=== PATIENT | female | born 1985 | race Caucasian/White ===

== ENCOUNTER → 2019-03-02 | Outpatient (CLI) | payer BC ==
[2019-03-02 10:15] VITALS: BP 141/85; PULSE 70; TEMP 98.5; BMI 43.9
--- NOTE | 2019-03-02 11:14 | P.HPBAR ---
Bariatric H&P - History & Physicial H&P Date: 03/02/19 History & Physicial: Visit/CC: initial clinic visit Patient initial contact: Initial weight: Initial weight in pounds: Height: 5 ft 8.25 in Initial BMI: Last weight: Current weight: 131.995 kg Current weight in pounds: 291.00 Current BMI: 43.9 [place] body weight (based on NIH guidelines): 64.07 kg Excess body weight loss: The patient is a 33 year-old F who presents for Bariatric Assessment. HPI: She reports looking into weight loss for years. Highest weight is present at 291 pounds. For weight loss, she has tried Xicenda, Adipex, and medications. Most weight loss of 60 pounds. with Adipex and going to the gym. She still has gallbladder and cannot tolerate fatty foods or fast foods. No family history of esophageal or stomach cancer. She reports diarrhea with fast foods. She reports intolerance to milk. She has started medical supervised weight loss. She is looking to gastrectomy. She reports lower back pain, hip, knee pain, ankle pain. She reports migraines with vomiting. ASSESSMENT: 1. Morbid obesity 2. Gallbladde disorder PLAN: 1. Labs 2. MBSC calculator 3. US gallbladder and HIDA scan 4. Open to gastrectomy options. 5. Sleep study Past Medical History Past Medical History: No Reported History, GERD/Reflux History of Any Multi-Drug Resistant Organisms: None Reported Past Surgical History: No Surgical Hx Reported Additional Past Surgical History / Comment(s): Copper IUD implanted 2012, vaginal childbirth x 1 in December 2012. Past Anesthesia/Blood Transfusion Reactions: No Reported Reaction Past Psychological History: Anxiety, Depression Smoking Status: Never smoker Past Alcohol Use History: None Reported Past Drug Use History: None Reported Surgical - Exam Vital Signs Temp Pulse BP 98.5 F 70 141/85 03/02/19 10:11 03/02/19 10:11 03/02/19 10:11 Bariatric Checklist Checklist: Plan: Checklist: EGD: 1. Hiatal hernia: 2. H. Pylori: HgbA1c: Vitamin D: Smoking: Never smoker Primary care physician referral: dr lopez Psychiatry clearance: Cardiology clearance: Sleep study: Diet journal: VTE risk score: VTE risk level: Rehab needs at discharge:
[2019-03-02 12:25] LABS: HCT 38.4 % (34.0-46.0); HGB 12.4 gm/dL (11.4-16.0); MCH 29.4 pg (25.0-35.0); MCHC 32.3 g/dL (31.0-37.0); Mean Platelet Volume 6.8; Platelet Count 274 k/uL (150-450); RBC 4.21 m/uL (3.80-5.40); RDW 12.8 % (11.5-15.5); WBC 6.3 k/uL (3.8-10.6)
[2019-03-02 12:39] LABS: INR 0.9 (<1.2); Partial Thromboplastin Time 23.1 sec (22.0-30.0); Prothrombin Time 9.7 sec (9.0-12.0)
[2019-03-02 19:08] LABS: Parathyroid Hormone Intact 24.4 pg/mL (14.0-72.0)
[2019-03-02 19:09] LABS: African American GFR (CKD) 96.7 (60.0-200.0); Albumin 4.2 g/dL (3.80-4.90); Albumin/Globulin Ratio 2.1 (1.60-3.17); BUN/Creat Ratio 14.44 Ratio (12.00-20.00); Calcium 9.1 mg/dL (8.7-10.3); Iron Saturation 16.62 (12.00-45.00); LDL Cholesterol,Calculated 88.2 mg/dL (0.0-131.0); Magnesium 1.8 mg/dL (1.5-2.4); Phosphorus 3.1 mg/dL (2.4-5.1); Potassium 4.1 mmol/L (3.5-5.5); Total Bilirubin 0.3 mg/dL (0.3-1.2); Total Protein 6.2 g/dL (6.2-8.2); VLDL Calculation 26.8 mg/dL (5.00-40.00)
[2019-03-02 19:42] LABS: Folate, Serum 16.2 ng/mL
[2019-03-02 22:17] LABS: Hemoglobin A1C 5.3 % (4.0-6.0)
[2019-03-03 13:45] LABS: Vit B1(Thiamine) 46 ug/L (38-122)
[2019-03-03 15:19] LABS: Zinc, Serum 60 ug/dL (60-130)
[2019-03-04 15:14] LABS: Vitamin A 44 ug/dL (38-106)
[2019-03-07 16:50] LABS: Selenium 118 mcg/L (63-160)
== END ==
LOC: BARWHC3 09:45
PROVIDERS: ATTEND Surgery Plastic and Reconstructive Surgery
DX: E66.01 Morbid (severe) obesity due to excess calories (principal); E21.1 Secondary hyperparathyroidism, not elsewhere classified; E89.1 Postprocedural hypoinsulinemia; D50.9 Iron deficiency anemia, unspecified; E44.0 Moderate protein-calorie malnutrition; E55.9 Vitamin D deficiency, unspecified; K74.1 Hepatic sclerosis; N19 Unspecified kidney failure; K50.90 Crohn's disease, unspecified, without complications; Z68.41 Body mass index [BMI] 40.0-44.9, adult
CPT/HCPCS: 80053; 80061; 82306; 82525; 82607; 82728; 82746; 83036; 83540; 83550; 83735; 83970; 84100; 84134; 84255; 84425; 84443; 84590; 84630; 85027; 85610; 85730; 93005; 99211

== ENCOUNTER → 2019-03-22 | Outpatient (CLI) | payer BC ==
--- NOTE | 2019-03-22 08:12 | US ---
EXAMINATION TYPE: US gallbladder DATE OF EXAM: 03/22/2019 COMPARISON: NONE CLINICAL HISTORY: R10.11 Right Upper Quad pain. Intermittent RUQ pain and N/V/D x multiple years, get s worse after eating. EXAM MEASUREMENTS: Liver Length: 14.5 cm Gallbladder Wall: 0.1 cm CBD: 0.3 cm Right Kidney: 10.7 x 5.3 x 4.8 cm Pancreas: visualized portions wnl, limited by overlying midline bowel gas Liver: wnl Gallbladder: wnl Evidence for sonographic Ortiz's sign: no CBD: visualized portions wnl, limited by overlying bowel gas Right Kidney: wnl IMPRESSION: No sonographic evidence of cholelithiasis nor acute cholecystitis.
== END | disposition home or self-care (01) ==
LOC: RADUSWWP 07:25
PROVIDERS: ATTEND Surgery Plastic and Reconstructive Surgery
DX: R10.11 Right upper quadrant pain (principal); R94.5 Abnormal results of liver function studies; Z88.8 Allergy status to other drugs, medicaments and biological substances; Z91.048 Other nonmedicinal substance allergy status
CPT/HCPCS: 76705

== ENCOUNTER 2019-04-03 07:57 | Day surgery (SDC) | payer BC ==
[2019-03-30 12:15] VITALS: BMI 44.1
--- NOTE | 2019-04-02 21:31 | P.GSHP ---
History of Present Illness H&P Date: 04/03/19 CHIEF COMPLAINT: GERD HISTORY OF PRESENT ILLNESS: The patient is a 34-year-old female who presents reports gastroesophageal reflux disease. Upper endoscopy was offered for further evaluation and management. PAST MEDICAL HISTORY: Please see list. PAST SURGICAL HISTORY: Please see list. MEDICATIONS: Please see list. ALLERGIES: Please see list. SOCIAL HISTORY: No illicit drug use FAMILY HISTORY: No reports of Crohn disease or ulcerative colitis. REVIEW OF ORGAN SYSTEMS: CONSTITUTIONAL: No reports of fevers or chills. GI: Denies any blood in stools or constipation. PHYSICAL EXAM: VITAL SIGNS: Stable GENERAL: Well-developed and pleasant in no acute distress. HEENT: No scleral icterus. Extraocular movements grossly intact. Moist buccal mucosa. NECK: Supple without lymphadenopathy. CHEST: Unlabored respirations. Equal bilateral excursions. CARDIOVASCULAR: Regular rate and rhythm. Distal 2+ pulses. ABDOMEN: Soft, nondistended. MUSCULOSKELETAL: No clubbing, cyanosis, or edema. ASSESSMENT: 1. Gastroesophageal reflux disease PLAN: 1. Recommend proceeding with an upper endoscopy Past Medical History Past Medical History: GERD/Reflux, Osteoarthritis (OA) Additional Past Medical History / Comment(s): bilateral knee & ankle pain, MIGRAINE HEADACHE History of Any Multi-Drug Resistant Organisms: None Reported Past Surgical History: No Surgical Hx Reported Additional Past Surgical History / Comment(s): EPIDURAL FOR CHILDBIRTH Past Anesthesia/Blood Transfusion Reactions: No Reported Reaction Smoking Status: Never smoker - Past Family History Father Family Medical History: Cancer Medications and Allergies Home Medications Medication Instructions Recorded Confirmed Type Liraglutide [Saxenda] 1 injection SQ DAILY 02/28/19 03/30/19 History Vortioxetine Hydrobromide 20 mg PO DAILY 03/02/19 03/30/19 History [Trintellix] buPROPion HCL [Wellbutrin XL] 150 mg PO DAILY 03/02/19 03/30/19 History Allergies Allergy/AdvReac Type Severity Reaction Status Date / Time escitalopram [From Lexapro] Allergy Anaphylaxis Verified 03/30/19 11:56 nickel Allergy Rash/Hives Verified 03/30/19 11:56
[~2019-04-03 07:57] MED LIST: LACTATED RINGERS 1,000 ML IV SCH; LIDOCAINE 1% 20 ML VIAL (10MG/ML) FOR IV START INTRADERMA PRN
[2019-04-03 08:33] VITALS: RESP 18; TEMP 98.2
[2019-04-03] MEDS ORDERED: LIDOCAINE 1% INJ 10MG/ML (20 ML MDV) ONE (09:57)
[2019-04-03] MEDS ORDERED: PROPOFOL 10 MG/ML 20 ML VIAL IV ONE (09:57)
--- NOTE | 2019-04-03 10:13 | P.PCN ---
Date of Procedure: 04/03/19 Description of Procedure: PREOPERATIVE DIAGNOSIS: Gastroesophageal reflux disease. Morbid obesity. POSTOPERATIVE DIAGNOSIS: Morbid obesity. Gastritis. Duodenitis Gastric polyp, benign cardia Gastroesophageal reflux disease. OPERATION: Esophagogastroduodenoscopy with biopsies along antrum and duodenum SURGEON: Nisa Shen MD ANESTHESIA: MAC. INDICATIONS: The patient is a 34-year-old female who presents with a history of reflux disease. Benefits and risks of the procedure were described. Informed consent was obtained. DESCRIPTION: The patient was brought into the endoscopy suite and laid in the left lateral decubitus position. An Olympus gastroscope was passed along the posterior oropharynx down to the distal esophagus where the squamocolumnar junction was encountered at 40 cm from the incisors. The stomach was entered and no bile reflux was found. Additional findings are listed below. Biopsies with cold forceps were obtained of the antrum. The first through third portion of the duodenum was examined and had active duodenitis. Retroflexion of the scope confirmed Hill grade 2 lower esophageal valve. The squamocolumnar junction demonstrated LA grade A erosive esophagitis. The stomach was desufflated. The patient tolerated the procedure well. FINDINGS: Squamocolumnar junction 37 cm from the incisors. Diaphragmatic hiatus at 37 cm. Benign gastric polyp 2 mm gastric cardia Hill grade 2 lower esophageal valve. LA grade A erosive esophagitis. Active duodenitis. Moderate chronic gastritis RECOMMENDATIONS: Upper endoscopy as needed. Start on omeprazole 40 mg daily Plan - Discharge Summary Discharge Rx Participant: Yes New Discharge Prescriptions: New Omeprazole 40 mg PO DAILY #30 capsule. No Action Liraglutide [Saxenda] 1 injection SQ DAILY buPROPion HCL [Wellbutrin XL] 150 mg PO DAILY Vortioxetine Hydrobromide [Trintellix] 20 mg PO DAILY Discharge Medication List Liraglutide [Saxenda] 1 injection SQ DAILY 02/28/19 [History] Vortioxetine Hydrobromide [Trintellix] 20 mg PO DAILY 03/02/19 [History] buPROPion HCL [Wellbutrin XL] 150 mg PO DAILY 03/02/19 [History] Omeprazole 40 mg PO DAILY #30 capsule. 04/03/19 [Rx] Follow up Appointment(s)/Referral(s): Nisa Shen MD [STAFF PHYSICIAN] - 04/26/19 Patient Instructions/Handouts: Gastritis (DC), Gastroesophageal Reflux Disease (DC), Gastric Polyps (DC), Duodenitis (ED) Discharge Disposition: HOME SELF-CARE
[2019-04-03 10:49] VITALS: BP 132/76; PULSE 79
== END 2019-04-03 11:03 | disposition home or self-care (01) ==
LOC: ORWHC2ENDO 07:57
PROVIDERS: ATTEND Surgery Plastic and Reconstructive Surgery
DX: K21.0 Gastro-esophageal reflux disease with esophagitis (principal); K29.50 Unspecified chronic gastritis without bleeding; K29.80 Duodenitis without bleeding; K31.7 Polyp of stomach and duodenum; E66.01 Morbid (severe) obesity due to excess calories; Z68.41 Body mass index [BMI] 40.0-44.9, adult; M19.90 Unspecified osteoarthritis, unspecified site; G43.909 Migraine, unspecified, not intractable, without status migrainosus; M25.562 Pain in left knee; M25.561 Pain in right knee; M25.572 Pain in left ankle and joints of left foot; M25.571 Pain in right ankle and joints of right foot; Z79.84 Long term (current) use of oral hypoglycemic drugs; Z79.899 Other long term (current) drug therapy; Z88.8 Allergy status to other drugs, medicaments and biological substances; Z91.048 Other nonmedicinal substance allergy status; Z80.9 Family history of malignant neoplasm, unspecified
CPT/HCPCS: 43239; 88305; 81025; J2001; J2704

== ENCOUNTER → 2019-05-17 | Outpatient (CLI) | payer BC ==
[2019-05-17 14:47] VITALS: BP 126/84; PULSE 85; TEMP 98.6; BMI 43.8
--- NOTE | 2019-05-17 15:34 | P.PN ---
Subjective Progress Note Date: 05/17/19 HPI: She is still in medical supervised weight loss since September ABDOMEN: Unremarkable LABS: reviewed EKG abnormal ASSESSMENT: 1. Morbid obesity PLAN: 1. All options and MBSC reveiwed 2. Follow up after cardiology and dietary Objective - Vital Signs Vital signs: Vital Signs Temp 98.6 F 05/17/19 14:07 Pulse 85 05/17/19 14:07 Resp BP 126/84 05/17/19 14:07 Pulse Ox Intake & Output 05/16/19 05/17/19 05/17/19 18:59 06:59 18:59 Weight 131.814 kg
== END ==
LOC: BARWHC3 13:47
PROVIDERS: ATTEND Surgery Plastic and Reconstructive Surgery
DX: E66.01 Morbid (severe) obesity due to excess calories (principal); R94.31 Abnormal electrocardiogram [ECG] [EKG]; Z68.41 Body mass index [BMI] 40.0-44.9, adult
CPT/HCPCS: 99211

== ENCOUNTER → 2019-06-05 | Outpatient (CLI) | payer BC ==
[2019-06-05 10:45] VITALS: BMI 43.7
== END | disposition home or self-care (01) ==
LOC: BARWHC3 08:31
PROVIDERS: ATTEND Surgery Plastic and Reconstructive Surgery
DX: E66.01 Morbid (severe) obesity due to excess calories (principal); Z68.41 Body mass index [BMI] 40.0-44.9, adult
CPT/HCPCS: 97804

== ENCOUNTER → 2019-09-13 | Outpatient (CLI) | payer BC ==
[2019-09-13 16:03] VITALS: BP 133/81; PULSE 97; RESP 16; TEMP 98; BMI 42.4
--- NOTE | 2019-09-13 16:38 | P.PN ---
Subjective Progress Note Date: 09/13/19 DATE OF SERVICE: 09/13/2019 CHIEF COMPLAINT: Morbid obesity HISTORY OF PRESENT ILLNESS: Sania Osullivan is a 34-year-old female who comes with lifelong morbid obesity. She is looking into the gastric bypass. She reports right upper quadrant abdominal pain including with eating fatty goods. At height of 5 feet 8.25 inches, her ideal body weight is 163 pounds. Her highest weight is present at 291 pounds, BMI 44.0. She comes in 280 pounds from 290 pounds, 3 months ago. She has lost 10 pound in 3 months. Her body mass index is 42.4. She is 117 pounds overweight. PAST MEDICAL HISTORY: 1. Morbid obesity due to excess calories 2. Body mass index of 44.0, initial 3. Osteoarthritis of the knees. 4. Osteoarthritis of the lower back. 5. Osteoarthritis of the ankle 6. Anxiety 7. Depressive disorder 8. Gastroesophageal reflux disease PAST SURGICAL HISTORY: 1. No abdominal surgeries HOME MEDICATIONS: Home Medications Medication Instructions Recorded Confirmed Liraglutide [Saxenda] 1 injection SQ DAILY 02/28/19 04/03/19 Vortioxetine Hydrobromide 20 mg PO DAILY 03/02/19 04/03/19 [Trintellix] buPROPion HCL [Wellbutrin XL] 150 mg PO DAILY 03/02/19 04/03/19 Previous Rx's Medication Instructions Recorded Omeprazole 40 mg PO DAILY #30 capsule. 04/03/19 ALLERGIES: Allergies Allergy/AdvReac Type Severity Reaction Status Date / Time escitalopram [From Lexapro] Allergy Anaphylaxis Verified 04/03/19 08:16 nickel Allergy Rash/Hives Verified 04/03/19 08:16 SOCIAL HISTORY: No past tobacco use. FAMILY HISTORY: No family history of ulcerative colitis disease or Crohn's disease. Family history of morbid obesity. No lupus in the family. No reports of stomach or esophageal cancer. REVIEW OF ORGAN SYSTEMS: CONSTITUTIONAL: At height of 5 feet 8.25 inches, her ideal body weight is 163 pounds. Highest weight 291 pounds, BMI 44.0. Her body mass index is 44.0. She was 128 pounds overweight. HEENT: Denies any active troubles with vision or hearing. ENDOCRINE: No diabetes. No hypothyroidism. CARDIOVASCULAR: No past reports of palpitations or heart attacks or chest pain. RESPIRATORY: No daytime somnolence. No asthma. GASTROINTESTINAL: Denies any bright red blood per rectum. No diarrhea. No constipation. MUSCULOSKELETAL: Has lower back pain and joint pain. Has osteoarthritis of the knees. NEURO: No headaches. No seizure disorders. PSYCH: Has depression. No suicidal ideation. RHEUMATOLOGIC: No lupus. No rheumatoid arthritis. HEMATOLOGIC: Denies any abnormal bleeding or bruising. No personal history of DVTs. SKIN: No rash. No skin cancer. PHYSICAL EXAM: VITAL SIGNS: Height 5 foot 8.25 inches, weight 280 pounds. BMI 42.4 Vital Signs Temp 98 F 09/13/19 16:00 Pulse 97 09/13/19 16:00 Resp 16 09/13/19 16:00 BP 133/81 09/13/19 16:00 Pulse Ox GENERAL: Well-developed in no acute distress. HEENT: No scleral icterus. Extraocular movements grossly intact. Hears conversational speech. No nasal drainage. NECK: Supple without lymphadenopathy. CHEST: Nonlabored respirations with equal bilateral excursions. CARDIOVASCULAR: Regular rate and regular rhythm. Distal 2+ pulses. ABDOMEN: Obese, soft, nontender, nondistended. MUSCULOSKELETAL: No clubbing, cyanosis. NEURO: No focal or lateralizing signs. Cranial nerves 2 through 12 grossly within normal limits. PSYCH: Appropriate affect. Alert and oriented to person, place and time. SKIN: Good skin turgor. Well perfused. ASSESSMENT: 1. Morbid obesity due to excess calories 2. Body mass index of 44.0 to 42.4 3. Osteoarthritis of the knees. 4. Osteoarthritis of the lower back. 5. Osteoarthritis of the ankle 6. Anxiety 7. Depressive disorder 8. Gastroesophageal reflux disease 9. Gallbladder disorder PLAN: 1. Bariatric options between a sleeve, band and a Josefina-en-Y gastric bypass were reviewed in detail. The patient elected for a gastric bypass. Robotic assisted approach described. 2. The [place] [facility] Data was also reviewed with benefits and risks as described. 3. An 8 page second-generation bariatric consent form was reviewed in detail including potential of bleeding, infection, leaks, adequate weight loss, nutritional deficiencies which the patient demonstrated understanding of the risks. 4. A 2 week high-protein low caloric 800 kcal diet described to address hepat omegaly. 5. Preoperative labs including complete metabolic panel and CBC with type and screen recommended. 6. DVT prophylaxis per [place] [facility]. 7. Antibiotic prophylaxis. 8. Inpatient hospitalization anticipated for more than 2 nights. 9. All questions and concerns were addressed with the patient. 10. She has right upper quadrant pain. Recommend robotic cholecystectomy described. 11. She is elevated risk for bismark-operative complications with multiple procedures. Objective - Vital Signs Vital signs: Vital Signs Temp 98 F 09/13/19 16:00 Pulse 97 09/13/19 16:00 Resp 16 09/13/19 16:00 BP 133/81 09/13/19 16:00 Pulse Ox Intake & Output 09/12/19 09/13/19 09/13/19 18:59 06:59 18:59 Weight 127.459 kg - Labs CBC & Chem 7: 09/13/19 17:09 09/13/19 17:18
[2019-09-13 17:51] LABS: HGB 13.8 gm/dL (11.4-16.0); MCV 90.5 fL (80.0-100.0); Platelet Count 257 k/uL (150-450); RBC 4.75 m/uL (3.80-5.40); RDW 13.4 % (11.5-15.5)
[2019-09-14 02:07] LABS: African American GFR (CKD) 130.1 (60.0-200.0); Albumin 4.4 g/dL (3.80-4.90); Anion Gap 13.6 mmol/L (4.00-12.00); BUN/Creat Ratio 18.57 Ratio (12.00-20.00); Calcium 9.3 mg/dL (8.7-10.3); Carbon Dioxide 22.4 mmol/L (21.6-31.8); Globulin 2.2 g/dL (1.6-3.3); Non-African American GFR(CKD) 112.3 (60.0-200.0); Potassium 4.2 mmol/L (3.5-5.5); Total Bilirubin 0.4 mg/dL (0.2-1.2); Total Protein 6.6 g/dL (6.2-8.2)
== END | disposition home or self-care (01) ==
LOC: BARWHC3 15:21
PROVIDERS: ATTEND Surgery Plastic and Reconstructive Surgery
DX: E66.01 Morbid (severe) obesity due to excess calories (principal); M17.0 Bilateral primary osteoarthritis of knee; M19.079 Primary osteoarthritis, unspecified ankle and foot; F41.8 Other specified anxiety disorders; K21.9 Gastro-esophageal reflux disease without esophagitis; K82.9 Disease of gallbladder, unspecified; Z68.41 Body mass index [BMI] 40.0-44.9, adult; Z83.49 Family history of other endocrine, nutritional and metabolic diseases; Z79.899 Other long term (current) drug therapy; Z88.8 Allergy status to other drugs, medicaments and biological substances
CPT/HCPCS: 80053; 85027; 99211

== ENCOUNTER 2019-09-18 06:20 | Inpatient (IN) | payer BC ==
--- NOTE | 2019-09-17 18:52 | P.GSHP ---
History of Present Illness H&P Date: 09/18/19 CHIEF COMPLAINT: Morbid obesity HISTORY OF PRESENT ILLNESS: Sania Osullivan is a 34-year-old female who comes with lifelong morbid obesity. Her highest weight is 291 pounds. She is looking to gastrectomy procedures. She reports lower back pain, hip, knee pain, ankle pain. She reports worsening right upper quadrant abdominal pain worsened with fatty foods. She presents for gastric bypass and cholecystectomy. At height of 5 feet 8.25 inches, her ideal body weight is 163 pounds. She was 291 pounds. Her body mass index was 44.0. She is 127 pounds overweight. PAST MEDICAL HISTORY: 1. Morbid obesity due to excess calories 2. Body mass index of 44.0, initial 3. Osteoarthritis of the knees. 4. Osteoarthritis of the lower back. 5. Osteoarthritis of the ankle 6. Anxiety 7. Depressive disorder 8. Gastroesophageal reflux disease PAST SURGICAL HISTORY: 1. No abdominal surgeries HOME MEDICATIONS: Home Medications Medication Instructions Recorded Confirmed Liraglutide [Saxenda] 1 injection SQ DAILY 02/28/19 04/03/19 Vortioxetine Hydrobromide 20 mg PO DAILY 03/02/19 04/03/19 [Trintellix] buPROPion HCL [Wellbutrin XL] 150 mg PO DAILY 03/02/19 04/03/19 Previous Rx's Medication Instructions Recorded Omeprazole 40 mg PO DAILY #30 capsule. 04/03/19 ALLERGIES: Allergies Allergy/AdvReac Type Severity Reaction Status Date / Time escitalopram [From Lexapro] Allergy Anaphylaxis Verified 04/03/19 08:16 nickel Allergy Rash/Hives Verified 04/03/19 08:16 SOCIAL HISTORY: No past tobacco use. FAMILY HISTORY: No family history of ulcerative colitis disease or Crohn's disease. Family history of morbid obesity. No lupus in the family. No reports of stomach or esophageal cancer. REVIEW OF ORGAN SYSTEMS: CONSTITUTIONAL: At height of 5 feet 8.25 inches, her ideal body weight is 163 pounds. She comes in 291 pounds. Her body mass index is 44.0. She is 128 pounds overweight. HEENT: Denies any active troubles with vision or hearing. ENDOCRINE: No diabetes. No hypothyroidism. CARDIOVASCULAR: No past reports of palpitations or heart attacks or chest pain. RESPIRATORY: No daytime somnolence. No asthma. GASTROINTESTINAL: Denies any bright red blood per rectum. No diarrhea. No constipation. Has gallbladder disorder MUSCULOSKELETAL: Has lower back pain and joint pain. Has osteoarthritis of the knees. NEURO: No headaches. No seizure disorders. PSYCH: Has depression. No suicidal ideation. RHEUMATOLOGIC: No lupus. No rheumatoid arthritis. HEMATOLOGIC: Denies any abnormal bleeding or bruising. No personal history of DVTs. SKIN: No rash. No skin cancer. PHYSICAL EXAM: VITAL SIGNS: Height 5 foot 8.25 inches, weight 290 pounds. BMI 43.9 GENERAL: Well-developed in no acute distress. HEENT: No scleral icterus. Extraocular movements grossly intact. Hears conversational speech. No nasal drainage. NECK: Supple without lymphadenopathy. CHEST: Nonlabored respirations with equal bilateral excursions. CARDIOVASCULAR: Regular rate and regular rhythm. Distal 2+ pulses. ABDOMEN: Obese, soft, nontender, nondistended. MUSCULOSKELETAL: No clubbing, cyanosis. Gross strength 5/5 distal lower extremities. NEURO: No focal or lateralizing signs. Cranial nerves 2 through 12 grossly within normal limits. PSYCH: Appropriate affect. Alert and oriented to person, place and time. SKIN: Good skin turgor. Well perfused. ASSESSMENT: 1. Morbid obesity due to excess calories 2. Body mass index of 44.0 3. Osteoarthritis of the knees. 4. Osteoarthritis of the lower back. 5. Osteoarthritis of the ankle 6. Anxiety 7. Depressive disorder 8. Gastroesophageal reflux disease 9. Gallbladder disorder PLAN: 1. Bariatric options between a sleeve, band and a Josefina-en-Y gastric bypass were reviewed in detail. The patient elected for a gastric bypass. Robotic assisted approach described. 2. The [place] [facility] Data was also reviewed with benefits and risks as described. 3. An 8 page second-generation bariatric consent form was reviewed in detail including potential of bleeding, infection, leaks, adequate weight loss, nutritional deficiencies which the patient demonstrated understanding of the risks. 4. A 2 week high-protein low caloric 800 kcal diet described to address hepat omegaly. 5. Preoperative labs including complete metabolic panel and CBC with type and screen recommended. 6. DVT prophylaxis per [place] [facility]. 7. Antibiotic prophylaxis. 8. Inpatient hospitalization anticipated for more than 2 nights. 9. All questions and concerns were addressed with the patient. 10. She has gallbladder disorder, recommend robotic cholecystectomy Past Medical History Past Medical History: GERD/Reflux, Osteoarthritis (OA) Additional Past Medical History / Comment(s): PVC's. Bilateral knee & ankle pain, herniated disc lower back. Edema BLE. History of Any Multi-Drug Resistant Organisms: None Reported Past Surgical History: No Surgical Hx Reported Additional Past Surgical History / Comment(s): [employer]agard Copper IUD implanted 2012, vaginal childbirth w/ epidural x1 in December 2012. EGD. Past Anesthesia/Blood Transfusion Reactions: No Reported Reaction, Motion Sickness Smoking Status: Never smoker - Past Family History Father Family Medical History: Cancer Additional Family Medical History / Comment(s): Non-hodgkin's lymphoma Medications and Allergies Home Medications Medication Instructions Recorded Confirmed Type Vortioxetine Hydrobromide 20 mg PO DAILY 03/02/19 09/13/19 History [Trintellix] Omeprazole 40 mg PO DAILY #30 capsule. 04/03/19 09/13/19 Rx Ergocalciferol [Vitamin D2] 50,000 unit PO Q7D 05/17/19 09/13/19 History Multivitamins, Pediatric Chew 2 tab PO DAILY 09/11/19 09/13/19 History [Poly--Angle Chew (formulary)] buPROPion [Wellbutrin] 100 mg PO BID 09/11/19 09/13/19 History Allergies Allergy/AdvReac Type Severity Reaction Status Date / Time escitalopram [From Lexapro] Allergy Anaphylaxis Verified 09/11/19 15:21 nickel Allergy Rash/Hives Verified 09/11/19 15:21
[~2019-09-18 06:20] MED LIST changes: +CHLORHEXIDINE GLUCONATE 15 ML CUP MUCOUS MEM ONE; +DEXAMETHASONE SOD PHOSPHATE 10 MG/ML 1 ML VIAL IV ONE; +ENOXAPARIN 40 MG/0.4 ML SYRINGE SQ ONE; -LACTATED RINGERS 1,000 ML IV SCH; -LIDOCAINE 1% 20 ML VIAL (10MG/ML) FOR IV START INTRADERMA PRN; +MIDAZOLAM 2 MG/2 ML VIAL IV PRN; +ONDANSETRON 4 MG/2 ML VIAL IVP ONE; +PANTOPRAZOLE 40 MG/10 ML VIAL IV STA; +SCOPOLAMINE 1.5MG/72HR PATCH TRANSDERM ONE; +SCOPOLAMINE 1.5MG/72HR PATCH TRANSDERM STA
[2019-09-18] MEDS ORDERED: ACETAMINOPHEN IV (For NPO) 1,000 MG in EMPTY BAG 1 BAG IVPB ONE (07:00)
[2019-09-18] MEDS ORDERED: LIDOCAINE 1% 20 ML VIAL (10MG/ML) FOR IV START INTRADERMA ONE (07:05)
[2019-09-18] MEDS: LACTATED RINGERS 1,000 ML IV SCH ×2 (07:05→14:33)
[2019-09-18] MEDS ORDERED: SUCCINYLCHOLINE CHLORIDE VIAL 200 MG/10 ML VIAL IV ONE (08:26)
[2019-09-18] MEDS ORDERED: INDOCYANINE GREEN 25 MG VIAL IV ONE (08:26)
[2019-09-18] MEDS ORDERED: diphenhydrAMINE 50 MG/ML 1 ML VIAL ONE (08:26)
[2019-09-18] MEDS ORDERED: GLYCOPYRROLATE 0.2 MG/ML 2 ML VIAL ONE (08:26)
[2019-09-18] MEDS ORDERED: KETAMINE 10 MG/ML 20 ML VIAL ONE (08:26)
[2019-09-18] MEDS ORDERED: MIDAZOLAM 2 MG/2 ML VIAL ONE (08:26)
[2019-09-18] MEDS ORDERED: LIDOCAINE 1% INJ 10MG/ML (20 ML MDV) ONE (08:26)
[2019-09-18] MEDS ORDERED: fentaNYL (PF) 50 MCG/ML 2 ML AMP ONE (08:26)
[2019-09-18] MEDS ORDERED: PROPOFOL 10 MG/ML 20 ML VIAL IV ONE (08:26)
[2019-09-18] MEDS ORDERED: NEOSTIGMINE 1 MG/ML 10 ML VIAL ONE (08:26)
[2019-09-18] MEDS ORDERED: ROCURONIUM BROMIDE 10 MG/ML 10 ML VIAL IV ONE (08:26)
[2019-09-18] MEDS ORDERED: HYDROmorphone (PF) 1 MG/ML ONE (08:26)
[2019-09-18] MEDS: ceFAZolin 3 GM in SODIUM CHLORIDE 0.9% 100 ML IVPB ONE ×2 (08:40→08:45)
[2019-09-18] MEDS ORDERED: LIDOCAINE 1%-EPI 1:100,000 20 ML VIAL SQ ONE (09:28)
[2019-09-18] MEDS ORDERED: LACTATED RINGERS 1,000 ML IV ONE (10:32)
[2019-09-18] MEDS ORDERED: diphenhydrAMINE 50 MG/ML 1 ML VIAL IVP PRN (11:58)
[2019-09-18] MEDS ORDERED: NALOXONE 0.4 MG/ML 1 ML VIAL IV PRN (11:58)
[2019-09-18] MEDS ORDERED: HYDROmorphone 1 MG/ML 1 ML SYRINGE IVP PRN (12:03)
--- NOTE | 2019-09-18 12:13 | P.OP ---
Date of Procedure: 09/18/19 Description of Procedure: SURGEON: YONI TENORIO MD PREOPERATIVE DIAGNOSES: 1. Morbid obesity due to excess calories 2. Body mass index of 44.0 3. Osteoarthritis of the knees. 4. Osteoarthritis of the lower back. 5. Osteoarthritis of the ankle 6. Anxiety 7. Depressive disorder 8. Gastroesophageal reflux disease 9. Gallbladder disorder POSTOPERATIVE DIAGNOSES: 1. Morbid obesity due to excess calories 2. Body mass index of 44.0 3. Osteoarthritis of the knees. 4. Osteoarthritis of the lower back. 5. Osteoarthritis of the ankle 6. Anxiety 7. Depressive disorder 8. Gastroesophageal reflux disease 9. Chronic cholecystitis 10. Hepatomegaly OPERATION: 1. Robotic-assisted da Walter Xi laparoscopic cholecystectomy, multiport with FIREFLY 2. Robotic assisted da Walter Xi laparoscopic Jonnathan-en-Y gastric bypass, 100 cm antecolic antegastric Jonnathan limb, with 25 mm EEA. 3. Intraoperative esophagogastrojejunoscopy. ANESTHESIA: GETA and local ESTIMATED BLOOD LOSS: 10 mL SPECIMENS REMOVED: Gallbladder COMPLICATIONS: NONE. INDICATIONS: Sania Osullivan is a 34-year-old female who comes with lifelong morbid obesity. Her highest weight is 291 pounds. She is looking to gastrectomy procedures. She reports lower back pain, hip, knee pain, ankle pain. She reports worsening right upper quadrant abdominal pain worsened with fatty foods. She presents for gastric bypass and cholecystectomy. At height of 5 feet 8.25 inches, her ideal body weight is 163 pounds. She was 291 pounds. She comes in today 281 pounds. Her body mass index was 44.0. She is 127 pounds overweight. A second-generation bariatric consent form was described in detail including the possibility of protein malnutrition, leaks, gastrojejunal stricture, venous thrombosis, need for further surgery for which she demonstrated understanding. Benefits and risks of the procedure were described at length. Informed consent was obtained. DESCRIPTION: The patient was brought into the operating room theater. She was placed supine. She had received Lovenox subcutaneously for DVT prophylaxis. Additionally she Peridex oral solution as an oral decontaminant was placed per anesthesia. After general induction, the abdomen was prepped and draped in standard sterile fashion. Ioban draping was placed along the abdomen. A robotic da Walter Xi system was prepped and primed. The xiphoid to umbilicus was measured of 16 cm. Proposed port sites were marked with indelible marker along the anterior axillary line bilaterally, mid clavicular line bilaterally with each port marked 10 cm from each other. The drilling assistant port was marked along the right lateral lower abdominal wall. The robotic stapler port was marked for the right midclavicular line including along the left midclavicular line. A 5 mm 0 degrees laparoscopic trocar entry was performed along the left upper quadrant. The abdomen was insufflated to 15 mmHg pressure, which she tolerated well. Diagnostic laparoscopy demonstrated no injury to bowel, viscera, or mesentery. She had mild hepatomegaly. No large hiatal hernia was encountered. An 8 mm camera port was placed left lateral to the umbilicus at the epigastrium, 15 cm distal to the xiphoid. Next, 12-mm robot stapler port was placed along the right mid abdomen. An 12 mm port was exchanged along the left upper quadrant. An 8 mm port was placed on the left lateral abdominal wall under direct localization. Another 8-mm port was placed along the right upper lateral abdominal wall. Please note that the ports were placed 18 to 20 cm away from the target anatomy of the stomach. Care was taken to check that each robotic arm was safely away from collision with the bed or the patient. At the epigastrium, a medium sized Nai liver retractor was placed under direct visualization with the Iron Scoop Driver placed under the right shoulder of the patient. The patient was repositioned in reverse Trendelenburg position at 21-degress after lowering the bed. The robot was docked over the patient. Using grasper for arm 3, a grasper for arm 1, including vessel sealer for arm 4, the robotic system was docked and primed as described. Instruments were interchanged by the drilling assistant including endoscissors, the needle furniture delivery driver, and stapler. I had sat at the console. The patient was injected with indocyanine green. Next, the transverse mesocolon was reflected into the upper abdomen preparing for the jejunojejunostomy portion of the case. The ligament of Treitz was identified and measured 60 cm antegrade and marked using 3-0 Silk. The jejunum was divided at the 60 cm point using 60 mm blue loads above the suture measurement. The biliopancreatic limb was held in place. The Jonnathan limb was measured 100 cm in an antegrade fashion to avoid tension along the proposed gastrojejunal anastomosis. At 100 cm along the anti-mesenteric border of the Jonnathan limb, a jejunojejunostomy was proposed whereby enterotomies were created along the biliopancreatic limb including the Jonnathan limb using a Bovie cautery. A stay suture of 3-0 Slik was placed to align and create the anastomosis. The enterotomies along the anti-mesenteric borders were created followed by unidirectional fire from the patient's right side using 60 mm blue load Smart technology robotic stapler. The jejunojejunostomy was found to be hemostatic. The enterotomy was closed after horizontal mattress stitch of 3-0 silk used to elevate the enterotomy followed by closure with the robotic stapler blue load. The jejunal limb was temporarily tacked along the left upper quadrant. Attention was now brought to the creation of the gastrojejunostomy. Along the lesser curvature of the stomach between the second and third veins, dissection was made along the retrogastric space to allow first firing of the robotic staple. Green loads of 3- 60 mm staplers were used to divide the stomach to create the gastric pouch. The patient was then prepared for placement of a Orvil. The patient was Mallampati 2. A 25-mm Orvil was selected for placement by the nurse foot and ankle surgeon. The Orvil tubing was placed anterior to the staple line of the gastric pouch and brought out through the left inferior lateral port. I re-scrubbed into the case. The robotic arms were temporarily undocked. The Orvil was then carefully and successfully navigated with the help of the nurse foot and ankle surgeon into the gastric pouch. The sutures were identified and divided. The tubing was from the 25 mm anvil. As the Orvil had been placed, the blind jejunal limb was brought proximally into the upper abdomen. No torsion was found upon the Jonnathan limb. Mild tension was identified as the limb was brought along the upper abdomen. The blind jejunal limb was previously opened using endo-scissors with cautery. The 25-mm EEA stapler was brought through the left anterior lateral port site from the left side. The EEA stapler was brought through the open jejunal limb and its needle was deployed at the antimesenteric border where the anvil were mated for approximately 1 minute upon firing. The stapler was removed after irrigating the shaft of the instrument with warm normal saline. Donuts were found to be intact and on both sides. The da Walter Xi robot arms were then re-docked. I sat at the console. The open jejunal limb defect was closed using 60 mm blue loads after releasing any tension from the blind jejunal limb. Care was taken to avoid any long blind limb to avoid candycane syndrome. Reinforcement sutures were placed along the gastrojejunal anastomosis using 3-0 Vicryl at the 3:00 and 9 o'clock position. The Verma and jejunojejunostomy mesenteric defects were closed using 2-0 VLOC. Attention was now brought to the gallbladder. The gallbladder fundus was retracted over the dome of the liver. Initial attention was brought to the infundibulum which was gently retracted in the inferior lateral approach. Using a grasper, the cystic duct including the cystic artery was carefully skeletonized. FIREFLY was used to identify the cystic artery and cystic structures. The critical view of safety was identified. Additionally, the infundibulum and cystic duct were at acute angles and curved similar to her S configuration of the gallbladder to the cystic duct. Large PLASTIC clips were used throughout the entire case. Using a clip retail service specialist 2 clips were placed proximally, and 1 clip was placed distally along the cystic duct and then cauterized with the cautery. Again care was taken to avoid any injury to the biliary tree as the common bile duct was clearly visualized during this portion of dissection. Next, the cystic artery was similarly clipped and cauterized. Electro-Bovie cautery was used to remove the gallbladder from the hepatic fossa. Hemostasis was checked and found to be adequate. I then went to the head of the bed to perform the esophagogastrojejunoscopy and a leak test. An Olympus gastroscope was passed along the posterior oropharynx which was unremarkable for any injury to the vocal cords. The scope was passed down to the proximal portion of the pouch, whereby no active bleeding was encountered. Excellent visualization of the gastrojejunostomy anastomosis, including the Jonnathan limb was encountered with endoscopic image obtained. The anastomosis was found to be patent. The gastrointestinal tract was desufflated. No evidence of intraoperative leak was encountered as the gastric pouch and anastomosis were submerged under normal saline solution. The robot was then undocked. I then went back to the bedside of the patient, whereby with coordinated effort of the drilling assistant, irrigation was aspirated from the upper abdominal cavity. Tisseel was placed circumferentially over the anastomosis of the gastrojejunostomy. The fascial defect of the EEA stapler was closed with her fascia and subcutaneous tissue. All instruments and pneumoperitoneum were evacuated from the abdominal cavity. The port correlating with the EEA stapler device was cleansed with normal saline solution and hydrogen peroxide. The rest of incisions were reapproximated using 4-0 Monocryl in an interrupted subcuticular fashion. Local anesthetic was infiltrated along the skin for postop analgesia. Liquid glue was applied to the skin. OptiFoam dressing was placed along the EEA stapler site. At the end of the procedure, needle, sponge and instrument count had been verified correct by the surgical scrub technician. She had tolerated the procedure well and was extubated and taken to the postanesthesia unit in stable condition. Intraoperative findings were described to the patient's family who were very pleased with the level of care. Total console time 68 minutes for gastric bypass Total console time 21 minutes for cholecystectomy Operative Findings: 1. Biliopancreatic limb 60 cm 2. Bypass performed using 100 cm jonnathan limb secondary to avoid increased tension at 150 cm. 3. Choi defect and jejunojejunostomy defects closed using 2-0V LOC 4. Leak test negative with gastrojejunal anastomosis patent and hemostatic. 5. Reinforcement sutures were placed along the gastrojejunal anastomosis
[2019-09-18] MEDS: HYDROmorphone 0.5 MG/0.5 ML SYRINGE IVP PRN ×3 (12:27→13:53)
[2019-09-18] MEDS ORDERED: ONDANSETRON 4 MG/2 ML VIAL IVP ONE (14:00)
[2019-09-18] MEDS: HYOSCYAMINE ORAL DROPS 1.875 MG/15 ML BOTTLE PO SCH ×2 (14:34→17:17)
[2019-09-18] MEDS: SIMETHICONE 40 MG/0.6 ML DROPS 2,000 MG/30 ML BOTTLE PO SCH ×2 (14:34→17:03)
[2019-09-18] MEDS: METOCLOPRAMIDE 5 MG/ML 2 ML VIAL IVP SCH ×2 (14:34→17:04)
[2019-09-18] MEDS: 0.9% NACL WITH KCL 20 MEQ/L 1,000 ML IV SCH ×2 (15:11→20:31)
[2019-09-18] MEDS: ceFAZolin 3 GM in SODIUM CHLORIDE 0.9% 100 ML IVPB SCH (16:27)
[2019-09-18] MEDS: ALBUTEROL NEBULIZED 2.5 MG/3 ML INHALATION SCH ×3 (16:54→19:27)
[2019-09-18] MEDS ORDERED: DEXAMETHASONE SOD PHOSPHATE 10 MG/ML 1 ML VIAL IV ONE (17:00)
[2019-09-18] MEDS: DEXAMETHASONE SOD PHOSPHATE 4 MG/ML 1 ML VIAL IV SCH (17:01)
[2019-09-18] MEDS: ONDANSETRON 4 MG/2 ML VIAL IVP SCH (17:04)
[2019-09-18] MEDS: ACETAMINOPHEN IV (For NPO) 1,000 MG in EMPTY BAG 1 BAG IVPB SCH (17:04)
--- NOTE | 2019-09-18 19:41 | P.PN ---
Progress Note - Text Progress Note Date: 09/18/19 She reports mild nausea. Nausea resolves with belching. IV fluid hydration given. May be discharged home tomorrow once tolerating diet
[2019-09-18] MEDS ORDERED: SODIUM CHLORIDE 0.9% 2,000 ML IV ONE (23:00)
[2019-09-19] MEDS: ONDANSETRON 4 MG/2 ML VIAL IVP SCH ×4 (00:10→17:37)
[2019-09-19] MEDS: HYOSCYAMINE ORAL DROPS 1.875 MG/15 ML BOTTLE PO SCH ×4 (00:10→17:37)
[2019-09-19] MEDS: SIMETHICONE 40 MG/0.6 ML DROPS 2,000 MG/30 ML BOTTLE PO SCH ×4 (00:10→17:37)
[2019-09-19] MEDS: DEXAMETHASONE SOD PHOSPHATE 4 MG/ML 1 ML VIAL IV SCH ×4 (00:10→17:36)
[2019-09-19] MEDS: ACETAMINOPHEN IV (For NPO) 1,000 MG in EMPTY BAG 1 BAG IVPB SCH ×3 (01:05→11:52)
[2019-09-19] MEDS: METOCLOPRAMIDE 5 MG/ML 2 ML VIAL IVP SCH ×4 (01:53→20:26)
[2019-09-19] MEDS: ceFAZolin 3 GM in SODIUM CHLORIDE 0.9% 100 ML IVPB SCH (01:58)
[2019-09-19] MEDS: 0.9% NACL WITH KCL 20 MEQ/L 1,000 ML IV SCH ×2 (02:00→09:58)
[2019-09-19] MEDS: LACTATED RINGERS 1,000 ML IV SCH ×2 (02:02)
[2019-09-19] MEDS: ALBUTEROL NEBULIZED 2.5 MG/3 ML INHALATION SCH ×4 (07:29→18:50)
[2019-09-19 08:03] LABS: Basophils % (A) 0 %; Eosinophils % (A) 0 %; HCT 40.5 % (34.0-46.0); HGB 12.6 gm/dL (11.4-16.0); Lymphocytes # (A) 0.7 k/uL (1.0-4.8); Lymphocytes % (A) 9 %; MCH 28.9 pg (25.0-35.0); MCHC 31.2 g/dL (31.0-37.0); MCV 92.7 fL (80.0-100.0); Mean Platelet Volume 7.3; Monocytes # (A) 0.3 k/uL (0-1.0); Monocytes % (A) 4 %; Neutrophils # (A) 7.4 k/uL (1.3-7.7); Neutrophils % (A) 87 %; Platelet Count 227 k/uL (150-450); RBC 4.36 m/uL (3.80-5.40); RDW 13.7 % (11.5-15.5); WBC 8.5 k/uL (3.8-10.6)
[2019-09-19 08:23] LABS: African American GFR (CKD) >90 (>60 ml/min/1.73 sqM); Anion Gap 11 mmol/L; Blood Urea Nitrogen 8 mg/dL (7-17); Calcium 7.9 mg/dL (8.4-10.2); Carbon Dioxide 20 mmol/L (22-30); Chloride 109 mmol/L (98-107); Magnesium 1.9 mg/dL (1.6-2.3); Non-African American GFR(CKD) >90 (>60 ml/min/1.73 sqM); Phosphorus 2.2 mg/dL (2.5-4.5); Potassium 4.5 mmol/L (3.5-5.1); Sodium 140 mmol/L (137-145)
[2019-09-19] MEDS: PANTOPRAZOLE 40 MG/10 ML VIAL IV SCH (08:51)
[2019-09-19] MEDS: ENOXAPARIN 40 MG/0.4 ML SYRINGE SQ SCH ×2 (08:51→10:04)
[2019-09-19] MEDS: 1: MVI, ADULT NO.4 WITH VIT K 10 ML, THIAMINE 100 MG, FOLIC ACID 1 MG, POTASSIUM CHLORID IV SCH ×12 (09:59→17:41)
--- NOTE | 2019-09-19 12:22 | P.PN ---
<Mackenzie Douglas Justin - Last Filed: 09/19/19 12:17> Subjective Progress Note Date: 09/19/19 CHIEF COMPLAINT: Morbid obesity HISTORY OF PRESENT ILLNESS: 34-year-old female who is status post robotic- assisted laparoscopic cholecystectomy and Josefina-en-Y gastric bypass. Postop day #1. Patient examined this morning at the bedside. Patient reports mild nausea this morning. She has been tolerating a few small sips of liquids. She reports abdominal pain but states it is tolerable at this time. She has not been ambulating in the hallway at the time of examination. She is passing flatus and voiding without difficulty. PHYSICAL EXAM: VITAL SIGNS: Currently stable. GENERAL: Well-developed in no acute distress. HEENT: No sclera icterus. Extraocular movements grossly intact. Moist buccal mucosa. Head is atraumatic, normocephalic. Hears conversational speech. No nasal drainage. NECK: Supple without lymphadenopathy. CHEST: Non-labored respirations and equal bilateral excursions. CARDIOVASCULAR: Regular rate with regular rhythm. Palpable 2+ radial pulses. ABDOMEN: Soft. Nondistended. Appropriate surgical tenderness. Surgical incisions clean dry and intact without drainage. MUSCULOSKELETAL: No clubbing, cyanosis or edema. NEUROLOGIC: No focal or lateralizing signs. Cranial nerves II through XII grossly intact. PSYCH: Appropriate affect. Alert and oriented to person, place and time. SKIN: Well perfused. Good skin turgor. ASSESSMENT: 1. Morbid obesity due to excess calories 2. Body mass index of 44.0 3. Osteoarthritis of the knees. 4. Osteoarthritis of the lower back. 5. Osteoarthritis of the ankle 6. Anxiety 7. Depressive disorder 8. Gastroesophageal reflux disease 9. Chronic cholecystitis 10. Hepatomegaly PLAN: 1. Continue clear liquid diet 2. Pain control continue Tylenol 3. Increase activity as tolerated 4. Incentive spirometer 10 times an hour 5. Continue Decadron, Reglan, and Zofran 6. Anticiapte discharge home tomorrow if patient is oral intake is adequate Nurse practitioner note has been reviewed by physician. Signing provider agrees with the documented findings, assessment, and plan of care. Objective - Vital Signs Vital signs: Vital Signs Temp 97.9 F 09/19/19 07:00 Pulse 92 09/19/19 11:16 Resp 12 09/19/19 07:00 BP 115/77 09/19/19 07:00 Pulse Ox 96 09/19/19 07:00 Intake & Output 09/18/19 09/19/19 09/19/19 18:59 06:59 18:59 Intake Total 1700 Output Total 610 700 Balance 1090 -700 Weight 127.6 kg Intake: IV 1700 Output: Urine 600 700 Estimated Blood Loss 10 Other: Voiding Method Toilet Toilet # Voids 1 1 - Labs CBC & Chem 7: 09/19/19 06:42 09/19/19 06:42 Labs: Abnormal Lab Results - Last 24 Hours (Table) 09/19/19 09/19/19 Range/Units 06:42 06:42 Lymphocytes # 0.7 L (1.0-4.8) k/uL Chloride 109 H (98-107) mmol/L Carbon Dioxide 20 L (22-30) mmol/L Calcium 7.9 L (8.4-10.2) mg/dL Phosphorus 2.2 L (2.5-4.5) mg/dL <Nisa Shen N - Last Filed: 09/19/19 19:28> Subjective Agree with continuing hospitalization for inadequate oral intake. Nausea also reviewed with dietary instructions given Objective - Vital Signs Vital signs: Vital Signs Temp 100.5 F H 09/19/19 15:00 Pulse 90 09/19/19 19:06 Resp 16 09/19/19 18:50 BP 104/64 09/19/19 15:00 Pulse Ox 92 L 09/19/19 15:09 Intake & Output 09/19/19 09/19/19 09/20/19 06:59 18:59 06:59 Output Total 700 Balance -700 Weight 127.6 kg Output: Urine 700 Other: Voiding Method Toilet Toilet # Voids 1 3 - Labs CBC & Chem 7: 09/19/19 06:42 09/19/19 06:42 Labs: Abnormal Lab Results - Last 24 Hours (Table) 09/19/19 09/19/19 Range/Units 06:42 06:42 Lymphocytes # 0.7 L (1.0-4.8) k/uL Chloride 109 H (98-107) mmol/L Carbon Dioxide 20 L (22-30) mmol/L Calcium 7.9 L (8.4-10.2) mg/dL Phosphorus 2.2 L (2.5-4.5) mg/dL
[2019-09-19 13:40] VITALS: BMI 42.1
[2019-09-19 15:11] VITALS: RESP 16
[2019-09-19] MEDS: ACETAMINOPHEN ORAL SUSP 160 MG/5 ML CUP PO PRN ×2 (16:25→22:34)
[2019-09-20] MEDS: DEXAMETHASONE SOD PHOSPHATE 4 MG/ML 1 ML VIAL IV SCH ×3 (01:00→11:21)
[2019-09-20] MEDS: SIMETHICONE 40 MG/0.6 ML DROPS 2,000 MG/30 ML BOTTLE PO SCH ×3 (01:00→11:21)
[2019-09-20] MEDS: ONDANSETRON 4 MG/2 ML VIAL IVP SCH ×3 (01:00→11:21)
[2019-09-20] MEDS: HYOSCYAMINE ORAL DROPS 1.875 MG/15 ML BOTTLE PO SCH ×3 (01:01→11:21)
[2019-09-20] MEDS: METOCLOPRAMIDE 5 MG/ML 2 ML VIAL IVP SCH ×2 (01:09→05:47)
[2019-09-20] MEDS: LACTATED RINGERS 1,000 ML IV SCH ×2 (05:27)
[2019-09-20] MEDS: ACETAMINOPHEN ORAL SUSP 160 MG/5 ML CUP PO PRN (05:37)
[2019-09-20] MEDS: 1: MVI, ADULT NO.4 WITH VIT K 10 ML, THIAMINE 100 MG, FOLIC ACID 1 MG, POTASSIUM CHLORID IV SCH ×6 (05:51)
[2019-09-20] MEDS: ALBUTEROL NEBULIZED 2.5 MG/3 ML INHALATION SCH ×2 (07:36→12:47)
[2019-09-20] MEDS ORDERED: BISACODYL 5 MG TABLET.DR PO PRN (08:00)
[2019-09-20 08:14] VITALS: BP 124/79; PULSE 100; TEMP 98.5
[2019-09-20] MEDS: PANTOPRAZOLE 40 MG/10 ML VIAL IV SCH (08:15)
[2019-09-20] MEDS: ENOXAPARIN 40 MG/0.4 ML SYRINGE SQ SCH (08:15)
[2019-09-20] MEDS ORDERED: ACETAMINOPHEN ORAL SUSP (PEDS) 3,840 MG/120 ML BOTTLE PO PRN (10:40)
--- NOTE | 2019-09-20 10:48 | P.DS ---
Providers Date of admission: 09/18/19 06:20 Expected date of discharge: 09/20/19 Attending physician: Nisa Shen Primary care physician: Lalo Sheth Hospital Course: 34-year-old female who underwent robotic-assisted laparoscopic cholecystectomy and Josefina-en-Y gastric bypass with Dr. Shen. Patient is doing well postoperatively without any immediate complications. She is tolerating liquid diet without difficulty. Pain is controlled on oral medications. Vital signs have been stable. She is stable for discharge home today. Please see EMR for further hospital course details. Discharge Diagnosis: 1. Morbid obesity due to excess calories 2. Body mass index of 44.0 3. Osteoarthritis of the knees. 4. Osteoarthritis of the lower back. 5. Osteoarthritis of the ankle 6. Anxiety 7. Depressive disorder 8. Gastroesophageal reflux disease 9. Chronic cholecystitis 10. Hepatomegaly Nurse practitioner note has been reviewed by physician. Signing provider agrees with the documented findings, assessment, and plan of care. Plan - Discharge Summary Discharge Rx Participant: Yes New Discharge Prescriptions: New Bisacodyl [Dulcolax] 5 mg PO DAILY PRN #10 tablet. PRN Reason: Constipation Simethicone 40 mg/0.6 ml Drops [Mylicon Drops] 40 mg PO PCHS PRN #30 ml PRN Reason: gas Acetaminophen Oral Susp [Tylenol] 650 mg PO Q4H PRN #500 ml PRN Reason: Pain Ondansetron Odt [Zofran Odt] 4 mg PO Q8HR PRN #9 tab PRN Reason: Nausea Continue Vortioxetine Hydrobromide [Trintellix] 20 mg PO DAILY Omeprazole 40 mg PO DAILY #30 capsule. buPROPion [Wellbutrin] 100 mg PO BID Discontinued Ergocalciferol [Vitamin D2] 50,000 unit PO Q7D Multivitamins, Pediatric Chew [Poly--Angle Chew (formulary)] 2 tab PO DAILY Discharge Medication List Vortioxetine Hydrobromide [Trintellix] 20 mg PO DAILY 03/02/19 [History] Omeprazole 40 mg PO DAILY #30 capsule. 04/03/19 [Rx] buPROPion [Wellbutrin] 100 mg PO BID 09/11/19 [History] Acetaminophen Oral Susp [Tylenol] 650 mg PO Q4H PRN #500 ml 09/20/19 [Rx] Bisacodyl [Dulcolax] 5 mg PO DAILY PRN #10 tablet. 09/20/19 [Rx] Ondansetron Odt [Zofran Odt] 4 mg PO Q8HR PRN #9 tab 09/20/19 [Rx] Simethicone 40 mg/0.6 ml Drops [Mylicon Drops] 40 mg PO PCHS PRN #30 ml 09/20/19 [Rx] Follow up Appointment(s)/Referral(s): Lalo Sheth MD [Primary Care Provider] - 09[facility]27[facility]19 3[facility] [place] [facility] - 09/22/19 10:00 am Activity/Diet/Wound Care/Special Instructions: Tylenol as needed for pain No lifting over 4 pounds You may shower. No soaking or tub baths Very light activity until you are reevaluated at your follow up appointment with your surgeon Continue clear liquid diet. No straws or carbonated beverages. Drink at least 64 ounces of fluid a day Avoid beverages with more than 6 g of sugar per serving to avoid dumping syndrome Open or crush all medications greater than the size of a tic-tac
== END 2019-09-20 13:06 | disposition home or self-care (01) | DRG 621 ==
LOC: 2ORMAIN 06:20 → 4SSUR 13:53
PROVIDERS: ADMIT Surgery Plastic and Reconstructive Surgery; ATTEND Surgery Plastic and Reconstructive Surgery
PROC: 0D164ZA Bypass Stomach to Jejunum, Percutaneous Endoscopic Approach (ICD-10-PCS; principal; 2019-09-18 14:05)
PROC: 8E0W4CZ Robotic Assisted Procedure of Trunk Region, Percutaneous Endoscopic Approach (ICD-10-PCS; principal; 2019-09-18 14:05)
PROC: 0DJ08ZZ Inspection of Upper Intestinal Tract, Via Natural or Artificial Opening Endoscopic (ICD-10-PCS; principal; 2019-09-18 14:05)
PROC: 0FT44ZZ Resection of Gallbladder, Percutaneous Endoscopic Approach (ICD-10-PCS; principal; 2019-09-18 14:05)
DX: E66.01 Morbid (severe) obesity due to excess calories (principal); F32.9 Major depressive disorder, single episode, unspecified; F41.9 Anxiety disorder, unspecified; K21.9 Gastro-esophageal reflux disease without esophagitis; K81.1 Chronic cholecystitis; M17.0 Bilateral primary osteoarthritis of knee; M19.079 Primary osteoarthritis, unspecified ankle and foot; M47.9 Spondylosis, unspecified; Z68.41 Body mass index [BMI] 40.0-44.9, adult; Z79.899 Other long term (current) drug therapy; Z80.7 Family history of other malignant neoplasms of lymphoid, hematopoietic and related tissues; R16.0 Hepatomegaly, not elsewhere classified
CPT/HCPCS: 36415; 80051; 81025; 82310; 82565; 83735; 84100; 84520; 85025; 86850; 86900; 86901; 88304; 94640; 94760

== ENCOUNTER → 2019-09-22 | Outpatient (CLI) | payer BC ==
[2019-09-22 10:34] VITALS: BP 128/90; PULSE 76; TEMP 97.6; BMI 41.3
== END | disposition home or self-care (01) ==
LOC: BARWHC3 09:52
PROVIDERS: ATTEND Surgery Plastic and Reconstructive Surgery
DX: E66.01 Morbid (severe) obesity due to excess calories (principal); Z68.41 Body mass index [BMI] 40.0-44.9, adult; Z09 Encounter for follow-up examination after completed treatment for conditions other than malignant neoplasm; Z98.84 Bariatric surgery status
CPT/HCPCS: 99211

== ENCOUNTER → 2019-09-27 | Outpatient (CLI) | payer BC ==
[2019-09-27 14:17] VITALS: BP 121/82; PULSE 90; RESP 16; TEMP 98.1; BMI 40.3
--- NOTE | 2019-09-27 14:33 | P.PN ---
Subjective Progress Note Date: 09/27/19 HPI: Her pain is controlled. She is taking Tylenol for pain. No nausea. No constipation. She is getting over 60 to 70 grams protein. NO GERD. Some intoleranc ABDOMEN: No infections PLAN: 1. Moisturizers described. 2. Omeprazole continue. 3. Recommend 6 week recovery Objective - Vital Signs Vital signs: Vital Signs Temp 98.1 F 09/27/19 14:13 Pulse 90 09/27/19 14:13 Resp 16 09/27/19 14:13 BP 121/82 09/27/19 14:13 Pulse Ox Intake & Output 09/26/19 09/27/19 09/27/19 18:59 06:59 18:59 Weight 121.109 kg
== END | disposition home or self-care (01) ==
LOC: BARWHC3 13:17
PROVIDERS: ATTEND Surgery Plastic and Reconstructive Surgery
DX: E66.01 Morbid (severe) obesity due to excess calories (principal); R94.31 Abnormal electrocardiogram [ECG] [EKG]; I49.3 Ventricular premature depolarization; Z68.41 Body mass index [BMI] 40.0-44.9, adult; I47.2 Ventricular tachycardia; F41.1 Generalized anxiety disorder; F33.41 Major depressive disorder, recurrent, in partial remission; Z01.818 Encounter for other preprocedural examination; Z79.899 Other long term (current) drug therapy
CPT/HCPCS: 97802; 99211

== ENCOUNTER → 2019-10-11 | Outpatient (CLI) | payer BC ==
[2019-10-11 14:22] VITALS: BP 113/79; PULSE 87; TEMP 98.2; BMI 39.5
--- NOTE | 2019-10-11 15:04 | P.PN ---
Subjective Progress Note Date: 10/11/19 DATE OF SERVICE: 10/11/2019 CHIEF COMPLAINT: Status post gastric bypass HISTORY OF PRESENT ILLNESS: Sania Osullivan is a 34-year-old female status post gastric bypass and cholecystectomy, 09/18/19. She is 3 weeks out. She reports occasional reflux. She reports food getting stuck with pureed food. She is t aking Omeprazole daily. She is only eating 50 to 60 grams protein daily. At height of 5 feet 8.25 inches, her ideal body weight is 163 pounds. Her highest weight is present at 291 pounds, BMI 44.0. She comes in 261 pounds from 266 pounds, 2 weeks ago. She has lost 5 pounds in 2 weeks. Her body mass index is 39.5. Lifetime weight loss is 30 pounds. Lifetime percent excess weight loss is 23%. She is 98 pounds overweight. PHYSICAL EXAM: VITAL SIGNS: Height 5 foot 8.25 inches, weight 261 pounds. BMI 39.5 Vital Signs Temp 98.2 F 10/11/19 14:10 Pulse 87 10/11/19 14:10 Resp BP 113/79 10/11/19 14:10 Pulse Ox GENERAL: Well-developed in no acute distress. HEENT: No scleral icterus. Extraocular movements grossly intact. Hears conversational speech. No nasal drainage. NECK: Supple without lymphadenopathy. CHEST: Nonlabored respirations with equal bilateral excursions. CARDIOVASCULAR: Regular rate and regular rhythm. Distal 2+ pulses. ABDOMEN: No cellulitis or infections. MUSCULOSKELETAL: No clubbing, cyanosis. NEURO: No focal or lateralizing signs. Cranial nerves 2 through 12 grossly within normal limits. PSYCH: Appropriate affect. Alert and oriented to person, place and time. SKIN: Good skin turgor. Well perfused. ASSESSMENT: 1. Morbid obesity due to excess calories 2. Body mass index of 44.0 to 39.5 3. Osteoarthritis of the knees. 4. Osteoarthritis of the lower back. 5. Osteoarthritis of the ankle 6. Anxiety 7. Depressive disorder 8. Gastroesophageal reflux disease 9. Gallbladder disorder 10. Status post gastric bypass and cholecystectomy 11. Dysphagia PLAN: 1. Recommend increase protein intake over 75 grams daily 2. She may need scope for dysphagia 3. Recommend bariatric labs 4. Continue Omeprazole 5. Recommend scope after October 21 Objective - Vital Signs Vital signs: Vital Signs Temp 98.2 F 10/11/19 14:10 Pulse 87 10/11/19 14:10 Resp BP 113/79 10/11/19 14:10 Pulse Ox Intake & Output 10/10/19 10/11/19 10/11/19 18:59 06:59 18:59 Weight 118.841 kg
== END | disposition home or self-care (01) ==
LOC: BARWHC3 13:42
PROVIDERS: ATTEND Surgery Plastic and Reconstructive Surgery
DX: E66.01 Morbid (severe) obesity due to excess calories (principal); Z68.39 Body mass index [BMI] 39.0-39.9, adult; M17.0 Bilateral primary osteoarthritis of knee; M47.816 Spondylosis without myelopathy or radiculopathy, lumbar region; M19.079 Primary osteoarthritis, unspecified ankle and foot; F32.9 Major depressive disorder, single episode, unspecified; F41.9 Anxiety disorder, unspecified; K21.9 Gastro-esophageal reflux disease without esophagitis; R13.10 Dysphagia, unspecified; K82.9 Disease of gallbladder, unspecified; Z90.49 Acquired absence of other specified parts of digestive tract; Z98.84 Bariatric surgery status
CPT/HCPCS: 97803; 99211

== ENCOUNTER 2019-10-30 10:03 | Day surgery (SDC) | payer BC ==
[2019-10-27 10:34] VITALS: BMI 38.9
--- NOTE | 2019-10-30 06:16 | P.GSHP ---
History of Present Illness H&P Date: 10/30/19 CHIEF COMPLAINT: GERD HISTORY OF PRESENT ILLNESS: The patient is a 34-year-old female who presents reports gastroesophageal reflux disease. Upper endoscopy was offered for further evaluation and management. PAST MEDICAL HISTORY: Please see list. PAST SURGICAL HISTORY: Please see list. MEDICATIONS: Please see list. ALLERGIES: Please see list. SOCIAL HISTORY: No illicit drug use FAMILY HISTORY: No reports of Crohn disease or ulcerative colitis. REVIEW OF ORGAN SYSTEMS: CONSTITUTIONAL: No reports of fevers or chills. GI: Denies any blood in stools or constipation. PHYSICAL EXAM: VITAL SIGNS: Stable GENERAL: Well-developed and pleasant in no acute distress. HEENT: No scleral icterus. Extraocular movements grossly intact. Moist buccal mucosa. NECK: Supple without lymphadenopathy. CHEST: Unlabored respirations. Equal bilateral excursions. CARDIOVASCULAR: Regular rate and rhythm. Distal 2+ pulses. ABDOMEN: Soft, nondistended. MUSCULOSKELETAL: No clubbing, cyanosis, or edema. ASSESSMENT: 1. Gastroesophageal reflux disease PLAN: 1. Recommend proceeding with an upper endoscopy Past Medical History Past Medical History: GERD/Reflux, Osteoarthritis (OA), Skin Disorder Additional Past Medical History / Comment(s): hx PVC's. Bilateral lower leg & ankle edema, herniated disc lower back. hx migraines, hx palipations, "gastric stricture", occ psoriasis, has IUD paraguard History of Any Multi-Drug Resistant Organisms: None Reported Past Surgical History: Bariatric Surgery, Cholecystectomy Additional Past Surgical History / Comment(s): Gastric Bypass 09-18-19, EGD Past Anesthesia/Blood Transfusion Reactions: Motion Sickness, Postoperative Nausea & Vomiting (PONV) Smoking Status: Never smoker - Past Family History Father Family Medical History: Cancer Medications and Allergies Home Medications Medication Instructions Recorded Confirmed Type Omeprazole 40 mg PO DAILY #30 capsule. 04/03/19 10/27/19 Rx Allergies Allergy/AdvReac Type Severity Reaction Status Date / Time escitalopram [From Lexapro] Allergy Anaphylaxis Verified 10/27/19 10:27 nickel Allergy Rash/Hives Verified 10/27/19 10:27
[~2019-10-30 10:03] MED LIST changes: -CHLORHEXIDINE GLUCONATE 15 ML CUP MUCOUS MEM ONE; -DEXAMETHASONE SOD PHOSPHATE 10 MG/ML 1 ML VIAL IV ONE; -ENOXAPARIN 40 MG/0.4 ML SYRINGE SQ ONE; +LACTATED RINGERS 1,000 ML IV SCH; -MIDAZOLAM 2 MG/2 ML VIAL IV PRN; -ONDANSETRON 4 MG/2 ML VIAL IVP ONE; -PANTOPRAZOLE 40 MG/10 ML VIAL IV STA; -SCOPOLAMINE 1.5MG/72HR PATCH TRANSDERM ONE; -SCOPOLAMINE 1.5MG/72HR PATCH TRANSDERM STA
[2019-10-30 10:33] VITALS: RESP 16; TEMP 97
[2019-10-30] MEDS ORDERED: LIDOCAINE 1% (10MG/ML) FOR IV START INTRADERMA ONE (10:42)
[2019-10-30] MEDS ORDERED: LIDOCAINE 1% INJ 10MG/ML (20 ML MDV) ONE (12:15)
[2019-10-30] MEDS ORDERED: PROPOFOL 10 MG/ML 20 ML VIAL IV ONE (12:15)
--- NOTE | 2019-10-30 12:40 | P.PCN ---
Date of Procedure: 10/30/19 Description of Procedure: PREOPERATIVE DIAGNOSIS: Dysphagia. s/p Josefina-en-y gastric bypass. Nausea with vomiting. Morbid obesity. POSTOPERATIVE DIAGNOSIS: Dysphagia. s/p Josefina-en-y gastric bypass. Nausea with vomiting. Morbid obesity. Gastrojejunal stricture without chronic ulcer without perforation OPERATION: Esophagogastrojejunoscopy with balloon dilatation from 12 to 20 mm. SURGEON: Nisa Shen MD ANESTHESIA: MAC. INDICATIONS: The patient is a 34-year-old female who presents with a history of dysphagia, gastric bypass including new-onset nausea and vomiting. Benefits and risks of the procedure were described. Informed consent was obtained. DESCRIPTION: The patient was brought into the endoscopy suite and laid in the left lateral decubitus position. After a timeout was confirmed, the procedure was initiated. An Olympus gastroscope was passed along the posterior oropharynx down to the distal esophagus where the squamocolumnar junction was unremarkable. The gastric pouch was entered. A gastrojejunal stricture of 2 mm was found as the adult gastroscope was 9.5 mm in size. A Tabtor balloon dilator was placed through the scope. Final insufflation up to 10 mm was performed with a total of 2 minutes. The scope was advanced up to 60 cm from the incisors into the Ro ux limb. The mucosa of the gastrojejunal anastomosis was intact. No chronic gastrojejunal marginal ulcer was encountered. Retaining sutures from along the anastomosis however undisturbed. No full-thickness injury was encountered. The GI tract was desufflated. The patient tolerated the procedure well. FINDINGS: Squamocolumnar junction unremarkable at 36 cm. Stricture of approximately 2 mm encountered. No chronic gastrojejunal ulceration encountered. Successful balloon dilatation to 10 mm. Gastric pouch 6 cm. RECOMMENDATIONS: Start combined therapy omeprazole of at least 4 weeks. Repeat upper endoscopy 4 weeks with dilation Plan - Discharge Summary Discharge Rx Participant: Yes New Discharge Prescriptions: New Omeprazole [PriLOSEC] 40 mg PO DAILY #90 cap No Action Omeprazole 40 mg PO DAILY #30 capsule. Discharge Medication List Omeprazole 40 mg PO DAILY #30 capsule. 04/03/19 [Rx] Omeprazole [PriLOSEC] 40 mg PO DAILY #90 cap 10/30/19 [Rx] [facility]ment[facility]Ref[facility] [place] [facility] [place] [facility] Patient Instructions/Handouts: Esophageal Dilation (DC) Activity/Diet/Wound Care/Special Instructions: Liquid diet today. Regular diet tomorrow Discharge Disposition: HOME SELF-CARE
[2019-10-30 13:07] VITALS: BP 125/76; PULSE 63
== END 2019-10-30 13:19 | disposition home or self-care (01) ==
LOC: ORWHC2ENDO 10:03
PROVIDERS: ATTEND Surgery Plastic and Reconstructive Surgery
DX: K95.89 Other complications of other bariatric procedure (principal); K56.699 Other intestinal obstruction unspecified as to partial versus complete obstruction; K21.9 Gastro-esophageal reflux disease without esophagitis; E66.01 Morbid (severe) obesity due to excess calories; M19.90 Unspecified osteoarthritis, unspecified site; L40.9 Psoriasis, unspecified; M51.9 Unspecified thoracic, thoracolumbar and lumbosacral intervertebral disc disorder; R60.0 Localized edema; G43.909 Migraine, unspecified, not intractable, without status migrainosus; F41.9 Anxiety disorder, unspecified; Z91.09 Other allergy status, other than to drugs and biological substances; Z68.39 Body mass index [BMI] 39.0-39.9, adult; Z88.8 Allergy status to other drugs, medicaments and biological substances; Z86.79 Personal history of other diseases of the circulatory system; Z97.5 Presence of (intrauterine) contraceptive device; Z90.49 Acquired absence of other specified parts of digestive tract; Z87.898 Personal history of other specified conditions; Z91.89 Other specified personal risk factors, not elsewhere classified; Z79.899 Other long term (current) drug therapy; Z80.9 Family history of malignant neoplasm, unspecified
CPT/HCPCS: 81025; 43245; J2001; J2704; C1726; 43249

== ENCOUNTER → 2019-11-08 | Outpatient (CLI) | payer BC ==
[2019-11-08 13:30] LABS: HCT 46.2 % (34.0-46.0); HGB 14.8 gm/dL (11.4-16.0); MCH 29.3 pg (25.0-35.0); MCHC 31.9 g/dL (31.0-37.0); MCV 91.9 fL (80.0-100.0); Mean Platelet Volume 7.4; Platelet Count 236 k/uL (150-450); RBC 5.03 m/uL (3.80-5.40); RDW 13.5 % (11.5-15.5); WBC 5.3 k/uL (3.8-10.6)
[2019-11-08 13:46] LABS: INR 0.9 (<1.2); Partial Thromboplastin Time 22.9 sec (22.0-30.0); Prothrombin Time 9.8 sec (9.0-12.0)
[2019-11-08 18:29] LABS: % Iron Saturation 31.11 (12.00-45.00); ALT 30 U/L (8-44); AST 23 U/L (13-35); African American GFR (CKD) 110.7 (60.0-200.0); Albumin/Globulin Ratio 1.96 (1.60-3.17); Alkaline Phosphatase 69 U/L (41-126); Calcium 9.6 mg/dL (8.7-10.3); Carbon Dioxide 27.7 mmol/L (21.6-31.8); Chloride 107 mmol/L (96-109); Chol/HDL Ratio 3.19; Cholesterol 172 mg/dL (0-200); Globulin 2.3 g/dL (1.6-3.3); Glucose 101 mg/dL (70-110); Iron 98 ug/dL (50-170); LDL Cholesterol,Calculated 101.2 mg/dL (0.0-131.0); Non-African American GFR(CKD) 95.5 (60.0-200.0); Phosphorus 3.1 mg/dL (2.4-5.1); Potassium 4.5 mmol/L (3.5-5.5); Sodium 143 mmol/L (135-145); Total Bilirubin 0.4 mg/dL (0.3-1.2); Total Iron Binding Capacity 315 ug/dL (228-460); Total Protein 6.8 g/dL (6.2-8.2)
[2019-11-08 18:37] LABS: Ferritin 22.4 ng/mL (10.0-291.0)
[2019-11-08 18:43] LABS: Folate, Serum >24.0 ng/mL
[2019-11-09 13:37] LABS: Vitamin A 48 ug/dL (38-106)
[2019-11-10 06:31] LABS: Vit B1(Thiamine) 57 ug/L (38-122)
== END | disposition home or self-care (01) ==
LOC: LABWHC1 12:38
PROVIDERS: ATTEND Surgery Plastic and Reconstructive Surgery
DX: E66.01 Morbid (severe) obesity due to excess calories (principal); E21.1 Secondary hyperparathyroidism, not elsewhere classified; E89.1 Postprocedural hypoinsulinemia; D50.9 Iron deficiency anemia, unspecified; K90.9 Intestinal malabsorption, unspecified; E55.9 Vitamin D deficiency, unspecified; K74.1 Hepatic sclerosis; N19 Unspecified kidney failure; K50.90 Crohn's disease, unspecified, without complications
CPT/HCPCS: 36415; 80053; 80061; 82306; 82525; 82607; 82728; 82746; 83036; 83540; 83550; 83735; 83970; 84100; 84134; 84255; 84425; 84443; 84590; 84630; 85027; 85610; 85730

== ENCOUNTER 2023-02-22 15:07 | Emergency (ER) | payer BC ==
[2023-02-22] MEDS ORDERED: SODIUM CHLORIDE 0.9% 1,000 ML IV STA (15:52)
[2023-02-22] MEDS ORDERED: ACETAMINOPHEN TAB 325 MG TAB PO STA (16:14)
[2023-02-22 16:21] LABS: Basophils % (A) 0 %; Eosinophils # (A) 0.1 k/uL (0-0.7); Eosinophils % (A) 1 %; HGB 10.9 gm/dL (11.4-16.0); Hypochromasia Marked; Lymphocytes # (A) 0.6 k/uL (1.0-4.8); Lymphocytes % (A) 5 %; MCH 26.1 pg (25.0-35.0); MCHC 31.1 g/dL (31.0-37.0); MCV 84.1 fL (80.0-100.0); Monocytes # (A) 0.4 k/uL (0-1.0); Monocytes % (A) 4 %; Neutrophils # (A) 10.3 k/uL (1.3-7.7); Neutrophils % (A) 90 %; Platelet Count 343 k/uL (150-450); RBC 4.16 m/uL (3.80-5.40); RDW 13.7 % (11.5-15.5); WBC 11.5 k/uL (3.8-10.6)
[2023-02-22 16:28] LABS: Appearance,Urine Cloudy (Clear); Bacteria,Urine Rare /hpf; Bilirubin,Urine Negative (Negative); Blood,Urine Negative (Negative); Color,Urine Light Yellow; Glucose,Urine (UA) Negative (Negative); Ketones,Urine Negative (Negative); Leukocyte Esterase,Urine Large (Negative); Mucus,Urine Occasional /hpf; Nitrite,Urine Negative (Negative); PH, Urine 5.5 (5.0-8.0); Protein,Urine Negative (Negative); RBC,Urine 3 /hpf (0-5); Specific Gravity,Urine 1.008 (1.001-1.035); Squamous Epithelial Cell,Urine 9 /hpf (0-4); Urobilinogen,Urine <2.0 mg/dL (<2.0); WBC,Urine 7 /hpf (0-5)
[2023-02-22 16:33] LABS: ALT 16 U/L (4-34); AST 20 U/L (14-36); African American GFR (CKD) >90 (>60 ml/min/1.73 sqM); Albumin 3.9 g/dL (3.5-5.0); Alkaline Phosphatase 57 U/L (38-126); Anion Gap 10 mmol/L; Blood Urea Nitrogen 9 mg/dL (7-17); Calcium 8.6 mg/dL (8.4-10.2); Carbon Dioxide 22 mmol/L (22-30); Chloride 104 mmol/L (98-107); Glucose 122 mg/dL (74-99); Non-African American GFR(CKD) >90 (>60 ml/min/1.73 sqM); Potassium 3.7 mmol/L (3.5-5.1); Sodium 136 mmol/L (137-145); Total Bilirubin 0.5 mg/dL (0.2-1.3); Total Protein 6.9 g/dL (6.3-8.2)
--- NOTE | 2023-02-22 16:42 | XR ---
EXAMINATION TYPE: XR chest 2V DATE OF EXAM: 02/22/2023 4:24 PM COMPARISON: Chest radiographs from 04/21/2011 TECHNIQUE: XR chest 2V Frontal and lateral views of the chest. CLINICAL INDICATION:Female, 37 years old with history of syncope; FINDINGS: Lungs/Pleura: There is no evidence of pleural effusion, focal consolidation, or pneumothorax. Pulmonary vascularity: Unremarkable. Heart/mediastinum: Cardiomediastinal silhouette is unremarkable. Musculoskeletal: No acute osseous pathology. IMPRESSION: No acute cardiopulmonary disease/process.
[2023-02-22 16:43] LABS: INR 0.9 (<1.2); Prothrombin Time 9.9 sec (9.0-12.0)
[2023-02-22 16:47] LABS: Partial Thromboplastin Time 21.3 sec (22.0-30.0)
--- NOTE | 2023-02-22 16:49 | ED ---
General Adult HPI - General Chief complaint: Syncope Stated complaint: dehydrated Time Seen by Provider: 02/22/23 15:38 Source: patient, RN notes reviewed Mode of arrival: ambulatory Limitations: no limitations - History of Present Illness Initial comments: 37-year-old female presented to emergency department with chief complaint of syncope. She states that she went downstairs to take her dog outside and passed out. She states she thinks she was only out for a few seconds. She states that afterwards she felt hot and sweaty and nauseous. She states that she has loss consciousness multiple times in the past. She states that she feels she is dehyd rated. She states that she has been trying to drink water but doesn't think that she is drinking enough. She states that she has had a weekend of heavy drinking. She had a Josefina-en-Y gastric bypass in August 2019. Denies chest pain, shortness of breath, palpitations. - Related Data Previous Rx's Medication Instructions Recorded Omeprazole 40 mg PO DAILY #30 capsule. 04/03/19 Omeprazole [PriLOSEC] 40 mg PO DAILY #90 cap 10/30/19 Allergies Allergy/AdvReac Type Severity Reaction Status Date / Time escitalopram [From Lexapro] Allergy Anaphylaxis Verified 10/27/19 10:27 nickel Allergy Rash/Hives Verified 10/27/19 10:27 Review of Systems ROS Statement: Those systems with pertinent positive or pertinent negative responses have been documented in the HPI. ROS Other: All systems not noted in ROS Statement are negative. Past Medical History Past Medical History: GERD/Reflux, Osteoarthritis (OA), Skin Disorder Additional Past Medical History / Comment(s): hx PVC's. Bilateral lower leg & ankle edema, herniated disc lower back. hx migraines, hx palipations, "gastric stricture", occ psoriasis, has IUD paraguard History of Any Multi-Drug Resistant Organisms: None Reported Past Surgical History: Bariatric Surgery, Cholecystectomy Additional Past Surgical History / Comment(s): Gastric Bypass 09-18-19, EGD Past Anesthesia/Blood Transfusion Reactions: Motion Sickness, Postoperative Nausea & Vomiting (PONV) Past Psychological History: Anxiety Smoking Status: Current every day smoker Past Alcohol Use History: Occasional Past Drug Use History: None Reported - Past Family History Father Family Medical History: Cancer General Exam Limitations: no limitations General appearance: alert, in no apparent distress Head exam: Present: atraumatic, normocephalic, normal inspection Eye exam: Present: normal appearance, PERRL, EOMI. Absent: scleral icterus, conjunctival injection, periorbital swelling ENT exam: Present: normal exam, mucous membranes moist Neck exam: Present: normal inspection. Absent: tenderness, meningismus, lymphadenopathy Respiratory exam: Present: normal lung sounds bilaterally. Absent: respiratory distress, wheezes, rales, rhonchi, stridor Cardiovascular Exam: Present: regular rate, normal rhythm, normal heart sounds. Absent: systolic murmur, diastolic murmur, rubs, gallop, clicks GI/Abdominal exam: Present: soft, normal bowel sounds. Absent: distended, tenderness, guarding, rebound, rigid Extremities exam: Present: normal inspection, full ROM, normal capillary refill. Absent: tenderness, pedal edema, joint swelling, calf tenderness Back exam: Present: normal inspection Neurological exam: Present: alert, oriented X3 Psychiatric exam: Present: normal affect, normal mood Skin exam: Present: warm, dry, intact, normal color. Absent: rash Course Vital Signs 02/22/23 02/22/23 02/22/23 15:15 15:53 18:14 Temperature 100.5 F H 97.9 F Pulse Rate 125 H 87 82 Respiratory 18 18 14 Rate Blood Pressure 100/61 113/72 115/62 O2 Sat by Pulse 99 100 99 Oximetry 02/22/23 18:58 Temperature Pulse Rate 78 Respiratory 18 Rate Blood Pressure 113/90 O2 Sat by Pulse 98 Oximetry Medical Decision Making - Medical Decision Making Was pt. sent in by a medical professional or institution (, PA, CHARGING PLUG PLACER, urgent care, hospital, or usp...) When possible be specific @ -No Did you speak to anyone other than the patient for history (EMS, parent, family, police, friend...)? What history was obtained from this source @ -No Did you review nursing and triage notes (agree or disagree)? Why? @ -I reviewed and agree with nursing and triage notes Were old charts reviewed (outside hosp., previous admission, EMS record, old EKG, old radiological studies, urgent care reports/EKG's, usp records)? Report findings @ -No old charts were reviewed Differential Diagnosis (chest pain, altered mental status, abdominal pain women, abdominal pain men, vaginal bleeding, weakness, fever, dyspnea, syncope, headache, dizziness, GI bleed, back pain, seizure, CVA, palpatations, mental health, musculoskeletal)? @ -Differential Syncope: Valvular disease, hypertrophic cardiomyopathy, pulmonary embolism, tamponade, tachycardia, bradycardia, [place], hypovolemia, hemorrhage, dissection, anemia, intracranial hemorrhage, seizure, hypoglycemia, carbon monoxide poisoning, this is not meant to be an all-inclusive list. EKG interpreted by me (3pts min.). @ -EKG at 1534 showed sinus tachycardia rate 103, IL 100, QRS 82, QTQTc [id number] X-rays interpreted by me (1pt min.). @ -Chest x-ray showed no evidence for acute process CT interpreted by me (1pt min.). @ -None done U/S interpreted by me (1pt. min.). @ -None done What testing was considered but not performed or refused? (CT, X-rays, U/S, labs)? Why? @ -None What meds were considered but not given or refused? Why? @ -None Did you discuss the management of the patient with other professionals (professionals i.e. , PA, CHARGING PLUG PLACER, lab, RT, psych nurse, social media marketer, haunted history tour guide, teacher, adult parole officer, case management assistant)? Give summary @ -No Was smoking cessation discussed for >3mins.? @ -No Was critical care preformed (if so, how long)? @ -No Were there social determinants of health that impacted care today? How? (Homelessness, low income, unemployed, alcoholism, drug addiction, farmer sportation, low edu. Level, literacy, decrease access to med. care, shelter, rehab)? @ -No Was there de-escalation of care discussed even if they declined (Discuss DNR or withdrawal of care, Hospice)? DNR status @ -No What co-morbidities impacted this encounter? (DM, HTN, Smoking, COPD, CAD, Cancer, CVA, ARF, Chemo, Hep., AIDS, mental health diagnosis, sleep apnea, morbid obesity)? @ -None Was patient admitted / discharged? Hospital course, mention meds given and route, prescriptions, significant lab abnormalities, going to OR and other pertinent info. @ -Discharged. Patient presented to emergency department with chief complaint of syncope earlier today when she was only out for a few seconds. CBC showed WBC 11.5 likely reactive, hemoglobin 10.9, hematocrit 34.0; sodium 136, potassium 3.7, creatinine 0.65; troponin negative, amylase and lipase negative; UA showed large leukocyte esterase, 7 white blood cells, 9 squamous epithelial cells during contaminated with squamous cells; Covid, influenza, RSV negative. Patient was rehydrated with 2 L of normal saline. She states that she is feeling better. Strict return precautions were discussed with patient and she expressed understanding. Patient is stable at time of discharge. Case discussed my attending, Dr. Fermin Undiagnosed new problem with uncertain prognosis? @ -No Drug Therapy requiring intensive monitoring for toxicity (Heparin, Nitro, Insulin, Cardizem)? @ -No Were any procedures done? @ -No Diagnosis/symptom? @ -Syncope Acute, or Chronic, or Acute on Chronic? @ -Acute Uncomplicated (without systemic symptoms) or Complicated (systemic symptoms)? @ -Uncomplicated Side effects of treatment? @ -No Exacerbation, Progression, or Severe Exacerbation? @ -No Poses a threat to life or bodily function? How? (Chest pain, [place], AZ, pneumonia, PE, COPD, DKA, ARF, appy, cholecystitis, CVA, Diverticulitis, Homicidal, Suicidal, threat to staff... and all critical care pts) @ -No - Lab Data Result diagrams: 02/22/23 16:10 02/22/23 16:10 Lab Results 02/22/23 02/22/23 02/22/23 Range/Units 16:10 16:10 16:10 WBC 11.5 H (3.8-10.6) k/uL RBC 4.16 (3.80-5.40) m/uL Hgb 10.9 L (11.4-16.0) gm/dL Hct 35.0 (34.0-46.0) % MCV 84.1 (80.0-100.0) fL MCH 26.1 (25.0-35.0) pg MCHC 31.1 (31.0-37.0) g/dL RDW 13.7 (11.5-15.5) % Plt Count 343 (150-450) k/uL MPV 7.0 Neutrophils % 90 % Lymphocytes % 5 % Monocytes % 4 % Eosinophils % 1 % Basophils % 0 % Neutrophils # 10.3 H (1.3-7.7) k/uL Lymphocytes # 0.6 L (1.0-4.8) k/uL Monocytes # 0.4 (0-1.0) k/uL Eosinophils # 0.1 (0-0.7) k/uL Basophils # 0.0 (0-0.2) k/uL Hypochromasia Marked PT 9.9 (9.0-12.0) sec INR 0.9 (<1.2) APTT 21.3 L (22.0-30.0) sec Sodium 136 L (137-145) mmol/L Potassium 3.7 (3.5-5.1) mmol/L Chloride 104 (98-107) mmol/L Carbon Dioxide 22 (22-30) mmol/L Anion Gap 10 mmol/L BUN 9 (7-17) mg/dL Creatinine 0.65 (0.52-1.04) mg/dL Est GFR (CKD-EPI)AfAm >90 (>60 ml/min/1.73 sqM) Est GFR (CKD-EPI)NonAf >90 (>60 ml/min/1.73 sqM) Glucose 122 H (74-99) mg/dL Calcium 8.6 (8.4-10.2) mg/dL Total Bilirubin 0.5 (0.2-1.3) mg/dL AST 20 (14-36) U/L ALT 16 (4-34) U/L Alkaline Phosphatase 57 (38-126) U/L Troponin I (0.000-0.034) ng/mL Total Protein 6.9 (6.3-8.2) g/dL Albumin 3.9 (3.5-5.0) g/dL Amylase (30-110) U/L Lipase (23-300) U/L Urine Color Urine Appearance (Clear) Urine pH (5.0-8.0) Ur Specific [place] (1.001-1.035) Urine Protein (Negative) Urine Glucose (UA) (Negative) Urine Ketones (Negative) Urine Blood (Negative) Urine Nitrite (Negative) Urine Bilirubin (Negative) Urine Urobilinogen (<2.0) mg/dL Ur Leukocyte Esterase (Negative) Urine RBC (0-5) /hpf Urine WBC (0-5) /hpf Ur Squamous Epith Cells (0-4) /hpf Urine Bacteria (None) /hpf Urine Mucus (None) /hpf Urine HCG, Qual (Not Detectd) Influenza Type A (PCR) (Not Detectd) Influenza Type B (PCR) (Not Detectd) RSV (PCR) (Not Detectd) SARS-CoV-2 (PCR) (Not Detectd) 02/22/23 02/22/23 02/22/23 Range/Units 16:10 16:10 16:10 WBC (3.8-10.6) k/uL RBC (3.80-5.40) m/uL Hgb (11.4-16.0) gm/dL Hct (34.0-46.0) % MCV (80.0-100.0) fL MCH (25.0-35.0) pg MCHC (31.0-37.0) g/dL RDW (11.5-15.5) % Plt Count (150-450) k/uL MPV Neutrophils % % Lymphocytes % % Monocytes % % Eosinophils % % Basophils % % Neutrophils # (1.3-7.7) k/uL Lymphocytes # (1.0-4.8) k/uL Monocytes # (0-1.0) k/uL Eosinophils # (0-0.7) k/uL Basophils # (0-0.2) k/uL Hypochromasia PT (9.0-12.0) sec INR (<1.2) APTT (22.0-30.0) sec Sodium (137-145) mmol/L Potassium (3.5-5.1) mmol/L Chloride (98-107) mmol/L Carbon Dioxide (22-30) mmol/L Anion Gap mmol/L BUN (7-17) mg/dL Creatinine (0.52-1.04) mg/dL Est GFR (CKD-EPI)AfAm (>60 ml/min/1.73 sqM) Est GFR (CKD-EPI)NonAf (>60 ml/min/1.73 sqM) Glucose (74-99) mg/dL Calcium (8.4-10.2) mg/dL Total Bilirubin (0.2-1.3) mg/dL AST (14-36) U/L ALT (4-34) U/L Alkaline Phosphatase (38-126) U/L Troponin I <0.012 (0.000-0.034) ng/mL Total Protein (6.3-8.2) g/dL Albumin (3.5-5.0) g/dL Amylase (30-110) U/L Lipase (23-300) U/L Urine Color Light Yellow Urine Appearance Cloudy H (Clear) Urine pH 5.5 (5.0-8.0) Ur Specific [place] 1.008 (1.001-1.035) Urine Protein Negative (Negative) Urine Glucose (UA) Negative (Negative) Urine Ketones Negative (Negative) Urine Blood Negative (Negative) Urine Nitrite Negative (Negative) Urine Bilirubin Negative (Negative) Urine Urobilinogen <2.0 (<2.0) mg/dL Ur Leukocyte Esterase Large H (Negative) Urine RBC 3 (0-5) /hpf Urine WBC 7 H (0-5) /hpf Ur Squamous Epith Cells 9 H (0-4) /hpf Urine Bacteria Rare H (None) /hpf Urine Mucus Occasional H (None) /hpf Urine HCG, Qual Not Detected (Not Detectd) Influenza Type A (PCR) (Not Detectd) Influenza Type B (PCR) (Not Detectd) RSV (PCR) (Not Detectd) SARS-CoV-2 (PCR) (Not Detectd) 02/22/23 02/22/23 Range/Units 16:10 16:48 WBC (3.8-10.6) k/uL RBC (3.80-5.40) m/uL Hgb (11.4-16.0) gm/dL Hct (34.0-46.0) % MCV (80.0-100.0) fL MCH (25.0-35.0) pg MCHC (31.0-37.0) g/dL RDW (11.5-15.5) % Plt Count (150-450) k/uL MPV Neutrophils % % Lymphocytes % % Monocytes % % Eosinophils % % Basophils % % Neutrophils # (1.3-7.7) k/uL Lymphocytes # (1.0-4.8) k/uL Monocytes # (0-1.0) k/uL Eosinophils # (0-0.7) k/uL Basophils # (0-0.2) k/uL Hypochromasia PT (9.0-12.0) sec INR (<1.2) APTT (22.0-30.0) sec Sodium (137-145) mmol/L Potassium (3.5-5.1) mmol/L Chloride (98-107) mmol/L Carbon Dioxide (22-30) mmol/L Anion Gap mmol/L BUN (7-17) mg/dL Creatinine (0.52-1.04) mg/dL Est GFR (CKD-EPI)AfAm (>60 ml/min/1.73 sqM) Est GFR (CKD-EPI)NonAf (>60 ml/min/1.73 sqM) Glucose (74-99) mg/dL Calcium (8.4-10.2) mg/dL Total Bilirubin (0.2-1.3) mg/dL AST (14-36) U/L ALT (4-34) U/L Alkaline Phosphatase (38-126) U/L Troponin I (0.000-0.034) ng/mL Total Protein (6.3-8.2) g/dL Albumin (3.5-5.0) g/dL Amylase 50 (30-110) U/L Lipase 52 (23-300) U/L Urine Color Urine Appearance (Clear) Urine pH (5.0-8.0) Ur Specific [place] (1.001-1.035) Urine Protein (Negative) Urine Glucose (UA) (Negative) Urine Ketones (Negative) Urine Blood (Negative) Urine Nitrite (Negative) Urine Bilirubin (Negative) Urine Urobilinogen (<2.0) mg/dL Ur Leukocyte Esterase (Negative) Urine RBC (0-5) /hpf Urine WBC (0-5) /hpf Ur Squamous Epith Cells (0-4) /hpf Urine Bacteria (None) /hpf Urine Mucus (None) /hpf Urine HCG, Qual (Not Detectd) Influenza Type A (PCR) Not Detected (Not Detectd) Influenza Type B (PCR) Not Detected (Not Detectd) RSV (PCR) Not Detected (Not Detectd) SARS-CoV-2 (PCR) Not Detected (Not Detectd) Disposition Clinical Impression: Syncope Disposition: HOME SELF-CARE Condition: Stable Instructions (If sedation given, give patient instructions): Syncope (ED) Additional Instructions: Please return to the emergency department for new or worsening symptoms. Is patient prescribed a controlled substance at d/c from ED?: No Referrals: Terrance Bello DO [Primary Care Provider] - 1-2 days Time of Disposition: 18:48
[2023-02-22 17:56] LABS: Amylase 50 U/L (30-110); Lipase 52 U/L (23-300)
[2023-02-22 18:18] VITALS: TEMP 97.9
[2023-02-22 18:59] VITALS: BP 113/90; PULSE 78; RESP 18
== END 2023-02-22 18:59 | disposition home or self-care (01) ==
LOC: EC 15:07
DX: R55 Syncope and collapse (principal); F17.200 Nicotine dependence, unspecified, uncomplicated; Z20.822 Contact with and (suspected) exposure to COVID-19; Z88.8 Allergy status to other drugs, medicaments and biological substances; Z91.09 Other allergy status, other than to drugs and biological substances
CPT/HCPCS: 36415; 71046; 80053; 81001; 81025; 82150; 83690; 84484; 85025; 85610; 85730; 87636; 93005; 96360; 99284